=== PATIENT | female | born 1985 | race Caucasian/White ===

== ENCOUNTER 2018-12-10 18:15 | Observation (INO) | payer OTHER ==
[2018-12-10 20:15] LABS: BASO % 0.6 % (0.0-2.0); EOS # 0.2 K/uL (0.0-0.7); EOS % 3.6 % (0.0-4.0); HEMOGLOBIN 12.7 g/dL (12.0-16.0); LYMPH # 2.8 K/uL (1.0-4.3); LYMPH % 41.1 % (20.0-40.0); MEAN CORPUSCULAR HEMOGLOBIN 30.6 pg (27.0-31.0); MEAN CORPUSCULAR HGB CONC 33.7 g/dL (33.0-37.0); MONO # 0.5 K/uL (0.0-0.8); NEUT # 3.2 K/uL (1.8-7.0); NEUT % 47.7 % (50.0-75.0); NRBC % 0.1 % (0.0-0.0); RBC 4.14 Mil/uL (3.80-5.20); RED CELL DISTRIBUTION WIDTH 12.5 % (11.5-14.5); WHITE BLOOD COUNT 6.8 K/uL (4.8-10.8)
[2018-12-10 20:34] LABS: SQUAMOUS EPITHIAL 6 /hpf (0-5); URINE BILIRUBIN NEGATIVE (NEGATIVE); URINE BLOOD NEGATIVE (NEGATIVE); URINE CLARITY SLIGHTY-CLOUDY (Clear); URINE COLOR YELLOW (YELLOW); URINE GLUCOSE (UA) NEG (NEGATIVE); URINE LEUKOCYTE ESTERASE TRACE Leu/uL (Negative); URINE PROTEIN 100 mg/dL (NEGATIVE); URINE UROBILINOGEN 0.2-1.0 mg/dL (0.2-1.0)
[2018-12-10 20:37] LABS: ALT/SGPT 46 U/L (9-52); AST/SGOT 40 U/L (14-36); BLOOD UREA NITROGEN 12 mg/dl (7-17); CALCIUM 8.8 mg/dL (8.4-10.2); GFR NON-AFRICAN AMERICAN > 60
--- NOTE | 2018-12-10 21:14 | ED PDOC ---
Lower Extremity Pain/Injury Time Seen by Provider: 12/10/18 19:31 Chief Complaint (Nursing): Lower Extremity Problem/Injury Chief Complaint (Provider): lower extremity swelling and redness History Per: Patient History/Exam Limitations: no limitations Current Symptoms Are (Timing): Still Present Severity: Moderate Pain Scale Rating Of: 8 Additional History Per: Patient Additional Complaint(s): 33 year female with history of HIV sent by PMD for evaluation of bilateral lower extremity swelling and redness for one month. Patient states she was seen at [facility] twice a few weeks ago for same, Patient stated US were done and negative for "blood clots" but was not given antibiotics. Patient states swelling has worsened and painful on ambulation. She denies fever, bodyaches, nausea, vomiting, chills. - Risk Factors DVT Risk Factors: Pos: None Past Medical History Reviewed: Historical Data, Nursing Documentation, Vital Signs Vital Signs: Last Vital Signs Temp 98.6 F 12/10/18 18:41 Pulse 89 12/10/18 18:41 Resp 18 12/10/18 18:41 BP 115/77 12/10/18 18:41 Pulse Ox 99 12/10/18 18:41 Primary Care Provider: FAMILY PROVIDER,NO - Medical History PMH: HIV - Surgical History Surgical History: Cholecystectomy - Family History Family History: States: Unknown Family Hx - Living Arrangements Living Arrangements: With Family - Social History Alcohol: None Drugs: Denies - Immunization History Hx Tetanus Toxoid Vaccination: No Hx Influenza Vaccination: No Hx Pneumococcal Vaccination: No - Home Medications Home Medications: Ambulatory Orders Medication Instructions Recorded Emtricitabine/Tenofovir Diso 1 tab PO DAILY 12/11/15 [Truvada 200 MG-300 MG] Naproxen [Naprosyn] 500 mg PO BID #20 tab 12/11/15 Reyataz 1 tab PO DAILY 12/11/15 Ritonavir [Norvir] 100 mg PO DAILY 12/11/15 traMADol/Acetaminophen [Ultracet 1 tab PO Q8 PRN #20 tab 12/11/15 325 MG-37.5 MG] - Allergies Allergies/Adverse Reactions: Allergies Allergy/AdvReac Type Severity Reaction Status Date / Time zucchini Allergy SHORTNESS Uncoded 12/10/18 18:45 OF BREATH Wells Criteria for PE - Wells Criteria for Pulmonary Embolism Clinical Signs and Symptoms of DVT: Yes P.E is #1 Diagnosis, or Equally Likely: No Heart Rate >100: No Immobilization at least 3 days;Surgery previous 4 weeks: No Previous, objectively diagnosed PE or DVT: No Hemoptysis: No Malignancy w/treatment within 6 months, or palliative: No Total Score: 3 Review of Systems ROS Statement: Except As Marked, All Systems Reviewed And Found Negative Constitutional: Negative for: Fever, Chills, Sweats, Weakness, Malaise Eyes: Negative for: Pain, Vision Change, Eyelid Inflammation, Redness ENT: Negative for: Nose Pain, Mouth Pain, Throat Pain Cardiovascular: Negative for: Chest Pain, Light Headedness Respiratory: Negative for: Cough, Shortness of Breath, SOB with Exertion Gastrointestinal: Negative for: Nausea, Vomiting, Abdominal Pain, Diarrhea Musculoskeletal: Positive for: Leg Pain (bilat leg pain and swelling ), Foot Pain (bilat swelling) Neurological: Negative for: Weakness, Headache, Dizziness Physical Exam - Reviewed Nursing Documentation Reviewed: Yes Vital Signs Reviewed: Yes - Physical Exam Appears: Positive for: Well, Non-toxic, No Acute Distress Head Exam: Positive for: ATRAUMATIC, NORMAL INSPECTION, NORMOCEPHALIC Skin: Positive for: Warm (Bilat lower extremity swelling to the entire lower leg below the knee. with redness extending from ankles to mid calf, circumferential bilaterally.) Eye Exam: Positive for: Normal appearance, PERRL ENT: Positive for: Normal ENT Inspection Neck: Positive for: Normal, Painless ROM, Supple Cardiovascular/Chest: Positive for: Regular Rate, Rhythm, Chest Non Tender Respiratory: Positive for: CNT, Normal Breath Sounds Pulses-Dorsalis Pedis (L): 2+ Pulses-Dorsalis Pedis (R): 2+ Pulses-Radial (L): 2+ Pulses-Radial (R): 2+ Gastrointestinal/Abdominal: Positive for: Normal Exam, Soft Back: Positive for: Normal Inspection Extremity: Positive for: Normal ROM Neurological/Psych: Positive for: Awake, Alert, Normal Tone, Oriented - Laboratory Results Result Diagrams: 12/10/18 20:05 12/10/18 20:05 Lab Results: Total Bilirubin 1.0 mg/dl (0.2-1.3) 12/10/18 20:05 AST 40 U/L (14-36) H 12/10/18 20:05 ALT 46 U/L (9-52) 12/10/18 20:05 Alkaline Phosphatase 97 U/L (38-126) 12/10/18 20:05 Total Protein 8.0 G/DL (6.3-8.2) 12/10/18 20:05 Albumin 4.0 g/dL (3.5-5.0) 12/10/18 20:05 Globulin 4.0 gm/dL (2.2-3.9) H 12/10/18 20:05 Albumin/Globulin Ratio 1.0 (1.0-2.1) 12/10/18 20:05 Urine Color Yellow (YELLOW) 12/10/18 20:05 Urine Clarity Slighty-cloudy (Clear) 12/10/18 20:05 Urine pH 6.0 (5.0-8.0) 12/10/18 20:05 Ur Specific [place] 1.029 (1.003-1.030) 12/10/18 20:05 Urine Protein 100 mg/dL (NEGATIVE) 12/10/18 20:05 Urine Glucose (UA) Neg mg/dL (NEGATIVE) 12/10/18 20:05 Urine Ketones Trace mg/dL (NEGATIVE) 12/10/18 20:05 Urine Blood Negative (NEGATIVE) 12/10/18 20:05 Urine Nitrate Negative (NEGATIVE) 12/10/18 20:05 Urine Bilirubin Negative (NEGATIVE) 12/10/18 20:05 Urine Urobilinogen 0.2-1.0 mg/dL (0.2-1.0) 12/10/18 20:05 Ur Leukocyte Esterase Trace Armand/uL (Negative) 12/10/18 20:05 Urine RBC (Auto) 2 /hpf (0-3) 12/10/18 20:05 Urine Microscopic WBC 1 /hpf (0-5) 12/10/18 20:05 Ur Squamous Epith Cells 6 /hpf (0-5) H 12/10/18 20:05 - ECG O2 Sat by Pulse Oximetry: 99 Medical Decision Making Medical Decision Making: --CBC --CMP --ESR --BLOOD CX X2 --US LOWER EXT DOPPLER --VANCOMYCIN 1GM 19:[address] CORDON WHICH AGREES WITH PLAN. PER DR. KINGSTON LASIX NOT BE GIVEN AT THIS TIME, REQUESTED BY PMD. Disposition - Clinical Impression Clinical Impression: Cellulitis - Patient ED Disposition Is Patient to be Admitted: Transfer of Care - Disposition Disposition: Transfer of Care Disposition Time: 20:00 Condition: STABLE Patient Signed Over To: Kirsten Boston Handoff Comments: FOLLOW-UP ON LABS AND US DOPPLER RESULTS. - POA Present On Arrival: None
--- NOTE | 2018-12-10 21:41 | ED PDOC ---
- Laboratory Results Result Diagrams: 12/10/18 20:05 12/10/18 20:05 Lab Results: Total Bilirubin 1.0 mg/dl (0.2-1.3) 12/10/18 20:05 AST 40 U/L (14-36) H 12/10/18 20:05 ALT 46 U/L (9-52) 12/10/18 20:05 Alkaline Phosphatase 97 U/L (38-126) 12/10/18 20:05 Total Protein 8.0 G/DL (6.3-8.2) 12/10/18 20:05 Albumin 4.0 g/dL (3.5-5.0) 12/10/18 20:05 Globulin 4.0 gm/dL (2.2-3.9) H 12/10/18 20:05 Albumin/Globulin Ratio 1.0 (1.0-2.1) 12/10/18 20:05 Urine Color Yellow (YELLOW) 12/10/18 20:05 Urine Clarity Slighty-cloudy (Clear) 12/10/18 20:05 Urine pH 6.0 (5.0-8.0) 12/10/18 20:05 Ur Specific [place] 1.029 (1.003-1.030) 12/10/18 20:05 Urine Protein 100 mg/dL (NEGATIVE) 12/10/18 20:05 Urine Glucose (UA) Neg mg/dL (NEGATIVE) 12/10/18 20:05 Urine Ketones Trace mg/dL (NEGATIVE) 12/10/18 20:05 Urine Blood Negative (NEGATIVE) 12/10/18 20:05 Urine Nitrate Negative (NEGATIVE) 12/10/18 20:05 Urine Bilirubin Negative (NEGATIVE) 12/10/18 20:05 Urine Urobilinogen 0.2-1.0 mg/dL (0.2-1.0) 12/10/18 20:05 Ur Leukocyte Esterase Trace Armand/uL (Negative) 12/10/18 20:05 Urine RBC (Auto) 2 /hpf (0-3) 12/10/18 20:05 Urine Microscopic WBC 1 /hpf (0-5) 12/10/18 20:05 Ur Squamous Epith Cells 6 /hpf (0-5) H 12/10/18 20:05 - ECG O2 Sat by Pulse Oximetry: 99 - Progress ED Course And Treament: Case endorsed to proposal writer from Alayna NASCIMENTO pending labs, u/s EXAM: US for Deep Venous Thrombosis, bilateral Lower Extremity. CLINICAL HISTORY: Swelling TECHNIQUE: Real-time ultrasound scan of the veins of the bilateral lower extremity with color Doppler flow, spectral waveform analysis and compression. COMPARISON: None provided. FINDINGS: DEEP VEINS: The common femoral, superficial femoral, and popliteal veins are echolucent and compressible. There is normal color Doppler flow throughout. The visualized calf veins appear patent. SUPERFICIAL VEINS: The visualized greater saphenous vein is patent. SOFT TISSUES: No popliteal fossa cyst or other abnormalities. IMPRESSION: No deep venous thrombosis evident on bilateral lower extremity examination. Case discussed with Dr. Locke, hospitalist on-call, for admission Disposition - Clinical Impression Clinical Impression: Cellulitis - POA Present On Arrival: None - Disposition Disposition: Hospitalized as Observation Patient Disposition Time: 22:06 Condition: FAIR
--- NOTE | 2018-12-10 22:28 | CP.PCM.HP ---
History of Present Illness - History of Present Illness History of Present Illness: CC: leg pain HPI: 33 YO Female with PMHx of drug abuse (quit 4+yrs ago), obesity and HIV presents to [facility] ED for leg pain. Patient states that she has had on/off LLE pain, edema and erythema for the past month, it has worsened in that time. Initially, she would have swelling mostly in the LLE which would resolve in the morning after leg elevated. In the past 24 hrs, her swelling persisted along with worsening pain and erythema. This started initially in the L leg but she also noticed it on the R leg today. Patient was seen in PMD office and was sent to the ER for worsening symptoms. No associated trauma, bites or skin breakdown s. Denies fever, chills, palpitations, dyspnea, n/v, abdominal pain, worsening redness, edema, streaks. Denies long periods of inactivity and no blood/clotting disorders. PMD: Dr. Garcia PMHx: drug abuse (quit 4+yrs ago), tobacco use, obesity and HIV SurgHX: cholecystectomy FHx: HTN, CAD and DM in mother, father with liver malignancy NKDA, allergy to Zucchini Present on Admission - Present on Admission Any Indicators Present on Admission: No Review of Systems - Constitutional Constitutional: absent: Chills, Fever, Malaise - Cardiovascular Cardiovascular: absent: Chest Pain, Dyspnea, Palpitations - Respiratory Respiratory: absent: Cough, Dyspnea - Gastrointestinal Gastrointestinal: absent: Abdominal Pain - Musculoskeletal Musculoskeletal: Other (leg pain b/l). absent: Numbness Past Patient History - Past Social History Smoking Status: Light Smoker < 10 Cigarettes Daily Alcohol: None Drugs: Denies Home Situation {Lives}: With Family - HEMATOLOGICAL/ONCOLOGICAL Hx Human Immunodeficiency Virus (HIV): Yes - PSYCHIATRIC Hx Substance Use: No - SURGICAL HISTORY Hx Cholecystectomy: Yes - ANESTHESIA Hx Anesthesia: Yes Hx Anesthesia Reactions: No Meds Allergies/Adverse Reactions: Allergies Allergy/AdvReac Type Severity Reaction Status Date / Time zucchini Allergy SHORTNESS Uncoded 12/10/18 18:45 OF BREATH Physical Exam - Constitutional Appears: No Acute Distress, Other (obese) - Head Exam Head Exam: NORMAL INSPECTION - Eye Exam Eye Exam: EOMI, Normal appearance - ENT Exam ENT Exam: Mucous Membranes Moist - Respiratory Exam Respiratory Exam: Clear to Auscultation Bilateral, NORMAL BREATHING PATTERN. absent: Wheezes - Cardiovascular Exam Cardiovascular Exam: REGULAR RHYTHM, +S1, +S2 - GI/Abdominal Exam GI & Abdominal Exam: Normal Bowel Sounds, Soft, Tenderness - Extremities Exam Additional comments: erythema and non-pitting edema noted in the lower ext bilaterally, redness evenly distributed in both lets, starting from the distal leg superior to the ankle and extending to the mild-leg. Mild tenderness to palpation, normal warmth b/l. No streaking or LN appreciated Full ROM of the ankle and feet DT/PT intact Cap refill <2 sec No skin breaks appreciated - Neurological Exam Neurological exam: Alert, Oriented x3 - Psychiatric Exam Psychiatric exam: Normal Mood - Skin Skin Exam: Dry, Intact, Normal Color, Warm Results - Vital Signs Recent Vital Signs: Last Vital Signs Temp 98.6 F 12/10/18 18:41 Pulse 89 12/10/18 18:41 Resp 18 12/10/18 18:41 BP 115/77 12/10/18 18:41 Pulse Ox 99 12/10/18 22:08 - Labs Result Diagrams: 12/10/18 20:05 12/10/18 20:05 Labs: Laboratory Results - last 24 hr 12/10/18 12/10/18 12/10/18 20:05 20:05 20:05 WBC 6.8 RBC 4.14 Hgb 12.7 Hct 37.6 MCV 91.0 MCH 30.6 MCHC 33.7 RDW 12.5 Plt Count 338 MPV 7.0 L Neut % (Auto) 47.7 L Lymph % (Auto) 41.1 H [place] % (Auto) 7.0 Eos % (Auto) 3.6 Baso % (Auto) 0.6 Neut # (Auto) 3.2 Lymph # (Auto) 2.8 [place] # (Auto) 0.5 Eos # (Auto) 0.2 Baso # (Auto) 0.0 ESR 35 H Sodium 136 Potassium 4.0 Chloride 100 Carbon Dioxide 26 Anion Gap 14 BUN 12 Creatinine 0.6 L Est GFR ( Amer) > 60 Est GFR (Non-Af Amer) > 60 Random Glucose 111 H Calcium 8.8 Total Bilirubin 1.0 AST 40 H ALT 46 Alkaline Phosphatase 97 Total Protein 8.0 Albumin 4.0 Globulin 4.0 H Albumin/Globulin Ratio 1.0 Urine Color Yellow Urine Clarity Slighty-cloudy Urine pH 6.0 Ur Specific [place] 1.029 Urine Protein 100 Urine Glucose (UA) Neg Urine Ketones Trace Urine Blood Negative Urine Nitrate Negative Urine Bilirubin Negative Urine Urobilinogen 0.2-1.0 Ur Leukocyte Esterase Trace Urine RBC (Auto) 2 Urine Microscopic WBC 1 Ur Squamous Epith Cells 6 H Assessment & Plan - Assessment and Plan (Free Text) Assessment: Assessment/Plan: 33 YO Female with PMHx of drug abuse (quit 4+yrs ago), obesity and HIV is admitted for lower ext cellulites. Lower ext pain -unlikely to be cellulites given symmetry of the findings -other etiology to consider include stasis dermatitis, erythema nodosum etc -consider outpatient dermatology consult -s/p IV vamcomycin -reevaluate in AM for further need for abx -follow up inflammatory markers in the AM HIV -chronic -c/w home meds Tobacco abuse -currently cutting down -education, encourage -Nicotine patch TD DVT prolx -Lovenox SC
[2018-12-11 01:01] VITALS: O2SAT 97
[2018-12-11 07:08] LABS: BASO % 0.5 % (0.0-2.0); EOS # 0.3 K/uL (0.0-0.7); EOS % 4.4 % (0.0-4.0); HEMOGLOBIN 12.5 g/dL (12.0-16.0); LYMPH # 2.2 K/uL (1.0-4.3); MEAN CELL VOLUME 91.8 fl (81.0-99.0); MEAN CORPUSCULAR HEMOGLOBIN 30.3 pg (27.0-31.0); MEAN PLATELET VOLUME 6.9 fl (7.2-11.7); MONO # 0.5 K/uL (0.0-0.8); MONO % 9.1 % (0.0-10.0); NEUT # 2.8 K/uL (1.8-7.0); NRBC % 0.1 % (0.0-0.0); RBC 4.13 Mil/uL (3.80-5.20); WHITE BLOOD COUNT 5.8 K/uL (4.8-10.8)
[2018-12-11 07:53] VITALS: BP 128/77; PULSE 66; RESP 20; TEMP 97.5
--- NOTE | 2018-12-11 08:42 | US ---
Date of service: 12/10/2018 PROCEDURE: Bilateral lower extremity venous duplex Doppler. HISTORY: LEG SWELLING COMPARISON: None available. TECHNIQUE: Bilateral common femoral, superficial femoral, popliteal and posterior tibial veins were evaluated. Flow was assessed with color Doppler, compressibility, assessment of phasic flow and augmentation response. FINDINGS: COMMON FEMORAL VEIN: Right CFV: Unremarkable. Left CFV: Unremarkable. SUPERFICIAL FEMORAL VEIN: Right SFV: Unremarkable. Left SFV: Unremarkable. POPLITEAL VEIN: Right Popliteal: Unremarkable. Left Popliteal: Unremarkable. POSTERIOR TIBIAL VEIN: Right PTV: Unremarkable. Left PTV: Unremarkable. OTHER FINDINGS: None. IMPRESSION: No evidence of deep venous thrombosis in the right or left lower extremity. The preliminary findings for this examination were reported by [facility] at 9:53 p.m. on 12/10/2018. There is concurrence of this report with the preliminary findings.
[2018-12-11] MEDS ORDERED: Multivitamin With Minerals Tab PO SCH (09:00)
[2018-12-11] MEDS ORDERED: Emtricitabine-Tenofovir 200 mg-300 mg Tab PO SCH (09:00)
[2018-12-11] MEDS ORDERED: Enoxaparin 60 mg Syringe SC SCH (09:00)
[2018-12-11] MEDS ORDERED: METHADONE PO SCH (09:00)
[2018-12-11] MEDS ORDERED: REYATAZ 300 MG PO SCH (09:00)
--- NOTE | 2018-12-11 10:54 | CP.PCM.DIS ---
<Leonardo Sotelo - Last Filed: 12/11/18 10:55> Provider - Provider Date of Admission: 12/10/18 22:07 Attending physician: Eri Locke MD Consults: 12/11/18 09:00 Social Work Referral Routine Comment: hx of substance abuse/ cocaine Physician Instructions: Reason For Exam: hx of substance abuse Time Spent in preparation of Discharge (in minutes): 35 Diagnosis - Discharge Diagnosis (1) Stasis dermatitis of both legs Status: Acute Hospital Course - Lab Results Lab Results: Most Recent Lab Values WBC 5.8 K/uL (4.8-10.8) 12/11/18 06:25 RBC 4.13 Mil/uL (3.80-5.20) 12/11/18 06:25 Hgb 12.5 g/dL (12.0-16.0) 12/11/18 06:25 Hct 37.9 % (34.0-47.0) 12/11/18 06:25 MCV 91.8 fl (81.0-99.0) 12/11/18 06:25 MCH 30.3 pg (27.0-31.0) 12/11/18 06:25 MCHC 33.0 g/dL (33.0-37.0) 12/11/18 06:25 RDW 13.0 % (11.5-14.5) 12/11/18 06:25 Plt Count 304 K/uL (130-400) 12/11/18 06:25 MPV 6.9 fl (7.2-11.7) L 12/11/18 06:25 Neut % (Auto) 48.0 % (50.0-75.0) L 12/11/18 06:25 Lymph % (Auto) 38.0 % (20.0-40.0) 12/11/18 06:25 [place] % (Auto) 9.1 % (0.0-10.0) 12/11/18 06:25 Eos % (Auto) 4.4 % (0.0-4.0) H 12/11/18 06:25 Baso % (Auto) 0.5 % (0.0-2.0) 12/11/18 06:25 Neut # (Auto) 2.8 K/uL (1.8-7.0) 12/11/18 06:25 Lymph # (Auto) 2.2 K/uL (1.0-4.3) 12/11/18 06:25 [place] # (Auto) 0.5 K/uL (0.0-0.8) 12/11/18 06:25 Eos # (Auto) 0.3 K/uL (0.0-0.7) 12/11/18 06:25 Baso # (Auto) 0.0 K/uL (0.0-0.2) 12/11/18 06:25 ESR 35 mm/hr (0-20) H 12/10/18 20:05 Sodium 136 mmol/l (132-148) 12/10/18 20:05 Potassium 4.0 MMOL/L (3.6-5.0) 12/10/18 20:05 Chloride 100 mmol/L (98-107) 12/10/18 20:05 Carbon Dioxide 26 mmol/L (22-30) 12/10/18 20:05 Anion Gap 14 (10-20) 12/10/18 20:05 BUN 12 mg/dl (7-17) 12/10/18 20:05 Creatinine 0.6 mg/dl (0.7-1.2) L 12/10/18 20:05 Est GFR ( Amer) > 60 12/10/18 20:05 Est GFR (Non-Af Amer) > 60 12/10/18 20:05 Random Glucose 111 mg/dL (65-105) H 12/10/18 20:05 Calcium 8.8 mg/dL (8.4-10.2) 12/10/18 20:05 Total Bilirubin 1.0 mg/dl (0.2-1.3) 12/10/18 20:05 AST 40 U/L (14-36) H 12/10/18 20:05 ALT 46 U/L (9-52) 12/10/18 20:05 Alkaline Phosphatase 97 U/L (38-126) 12/10/18 20:05 Lactate Dehydrogenase 403 U/L (313-618) 12/11/18 06:25 Total Protein 8.0 G/DL (6.3-8.2) 12/10/18 20:05 Albumin 4.0 g/dL (3.5-5.0) 12/10/18 20:05 Globulin 4.0 gm/dL (2.2-3.9) H 12/10/18 20:05 Albumin/Globulin Ratio 1.0 (1.0-2.1) 12/10/18 20:05 Urine Color Yellow (YELLOW) 12/10/18 20:05 Urine Clarity Slighty-cloudy (Clear) 12/10/18 20:05 Urine pH 6.0 (5.0-8.0) 12/10/18 20:05 Ur Specific [place] 1.029 (1.003-1.030) 12/10/18 20:05 Urine Protein 100 mg/dL (NEGATIVE) 12/10/18 20:05 Urine Glucose (UA) Neg mg/dL (NEGATIVE) 12/10/18 20:05 Urine Ketones Trace mg/dL (NEGATIVE) 12/10/18 20:05 Urine Blood Negative (NEGATIVE) 12/10/18 20:05 Urine Nitrate Negative (NEGATIVE) 12/10/18 20:05 Urine Bilirubin Negative (NEGATIVE) 12/10/18 20:05 Urine Urobilinogen 0.2-1.0 mg/dL (0.2-1.0) 12/10/18 20:05 Ur Leukocyte Esterase Trace Armand/uL (Negative) 12/10/18 20:05 Urine RBC (Auto) 2 /hpf (0-3) 12/10/18 20:05 Urine Microscopic WBC 1 /hpf (0-5) 12/10/18 20:05 Ur Squamous Epith Cells 6 /hpf (0-5) H 12/10/18 20:05 - Hospital Course Hospital Course: 33 YO Female with PMHx of drug abuse (quit 4+yrs ago), obesity and HIV was admitted for evaluation of b/l lower ext edema. Pt had b/l duplex done, which showed no evidence of DVT. CBC showed no leukocytosis and D-dimer was normal. Edema/erythema improved overnight with rest and leg elevation. After an uneventful hospital stay, the pt was discharged in stable condition. Lower ext pain -unlikely to be cellulites given symmetry of the findings -other etiology to consider include stasis dermatitis, erythema nodosum etc -consider outpatient dermatology consult -s/p IV vamcomycin -reevaluate in AM for further need for abx -follow up inflammatory markers in the AM HIV -chronic -c/w home meds Tobacco abuse -currently cutting down -education, encourage -Nicotine patch TD DVT prolx -Lovenox SC Discharge Exam - Head Exam Head Exam: NORMAL INSPECTION - Eye Exam Eye Exam: EOMI Pupil Exam: PERRL - ENT Exam ENT Exam: Mucous Membranes Moist - Neck Exam Neck exam: Full Rom - Respiratory Exam Respiratory Exam: Clear to PA & Lateral, NORMAL BREATHING PATTERN, UNREMARKABLE - Cardiovascular Exam Cardiovascular Exam: REGULAR RHYTHM, RRR, +S1, +S2. absent: JVD, Systolic Murmur - GI/Abdominal Exam GI & Abdominal Exam: Normal Bowel Sounds, Soft, Unremarkable. absent: Pulsatile Mass, Rebound, Rigid - Extremities Exam Extremities exam: normal capillary refill, pedal edema (b/l pedal edema with hyperpigemntation b/l overlying lower 3rd LE), pedal pulses present - Neurological Exam Neurological exam: Alert, CN II-XII Intact, Normal Gait, Oriented x3 - Psychiatric Exam Psychiatric exam: Normal Affect, Normal Mood - Skin Skin Exam: Dry, Intact, Warm Discharge Plan - Discharge Medications Prescriptions: Sulfamethoxazole/Trimethoprim [Bactrim DS 800 mg-160 mg] 1 tab PO Q12H #10 tab - Follow Up Plan Condition: STABLE Disposition: HOME/ ROUTINE Instructions: Varicose Veins and Other Vein Disease in the Legs, Dependent Edema (DC), Cellulitis (DC) Additional Instructions: follow up with primary MD 1 week take medications as prescribed follow up with dermatology any worsening of symptoms please return to ED Referrals: Anthony Duran MD [Staff Provider] - Ines Garcia MD [Family Provider] - <Marcella Quiles - Last Filed: 12/11/18 17:08> Provider - Provider Date of Admission: 12/10/18 22:07 Attending physician: Eri Locke MD Consults: 12/11/18 09:00 Social Work Referral Routine Comment: hx of substance abuse/ cocaine Physician Instructions: Reason For Exam: hx of substance abuse Hospital Course - Lab Results Lab Results: Most Recent Lab Values WBC 5.8 K/uL (4.8-10.8) 12/11/18 06:25 RBC 4.13 Mil/uL (3.80-5.20) 12/11/18 06:25 Hgb 12.5 g/dL (12.0-16.0) 12/11/18 06:25 Hct 37.9 % (34.0-47.0) 12/11/18 06:25 MCV 91.8 fl (81.0-99.0) 12/11/18 06:25 MCH 30.3 pg (27.0-31.0) 12/11/18 06:25 MCHC 33.0 g/dL (33.0-37.0) 12/11/18 06:25 RDW 13.0 % (11.5-14.5) 12/11/18 06:25 Plt Count 304 K/uL (130-400) 12/11/18 06:25 MPV 6.9 fl (7.2-11.7) L 12/11/18 06:25 Neut % (Auto) 48.0 % (50.0-75.0) L 12/11/18 06:25 Lymph % (Auto) 38.0 % (20.0-40.0) 12/11/18 06:25 [place] % (Auto) 9.1 % (0.0-10.0) 12/11/18 06:25 Eos % (Auto) 4.4 % (0.0-4.0) H 12/11/18 06:25 Baso % (Auto) 0.5 % (0.0-2.0) 12/11/18 06:25 Neut # (Auto) 2.8 K/uL (1.8-7.0) 12/11/18 06:25 Lymph # (Auto) 2.2 K/uL (1.0-4.3) 12/11/18 06:25 [place] # (Auto) 0.5 K/uL (0.0-0.8) 12/11/18 06:25 Eos # (Auto) 0.3 K/uL (0.0-0.7) 12/11/18 06:25 Baso # (Auto) 0.0 K/uL (0.0-0.2) 12/11/18 06:25 ESR 35 mm/hr (0-20) H 12/10/18 20:05 Sodium 136 mmol/l (132-148) 12/10/18 20:05 Potassium 4.0 MMOL/L (3.6-5.0) 12/10/18 20:05 Chloride 100 mmol/L (98-107) 12/10/18 20:05 Carbon Dioxide 26 mmol/L (22-30) 12/10/18 20:05 Anion Gap 14 (10-20) 12/10/18 20:05 BUN 12 mg/dl (7-17) 12/10/18 20:05 Creatinine 0.6 mg/dl (0.7-1.2) L 12/10/18 20:05 Est GFR ( Amer) > 60 12/10/18 20:05 Est GFR (Non-Af Amer) > 60 12/10/18 20:05 Random Glucose 111 mg/dL (65-105) H 12/10/18 20:05 Calcium 8.8 mg/dL (8.4-10.2) 12/10/18 20:05 Total Bilirubin 1.0 mg/dl (0.2-1.3) 12/10/18 20:05 AST 40 U/L (14-36) H 12/10/18 20:05 ALT 46 U/L (9-52) 12/10/18 20:05 Alkaline Phosphatase 97 U/L (38-126) 12/10/18 20:05 Lactate Dehydrogenase 403 U/L (313-618) 12/11/18 06:25 Total Protein 8.0 G/DL (6.3-8.2) 12/10/18 20:05 Albumin 4.0 g/dL (3.5-5.0) 12/10/18 20:05 Globulin 4.0 gm/dL (2.2-3.9) H 12/10/18 20:05 Albumin/Globulin Ratio 1.0 (1.0-2.1) 12/10/18 20:05 Urine Color Yellow (YELLOW) 12/10/18 20:05 Urine Clarity Slighty-cloudy (Clear) 12/10/18 20:05 Urine pH 6.0 (5.0-8.0) 12/10/18 20:05 Ur Specific [place] 1.029 (1.003-1.030) 12/10/18 20:05 Urine Protein 100 mg/dL (NEGATIVE) 12/10/18 20:05 Urine Glucose (UA) Neg mg/dL (NEGATIVE) 12/10/18 20:05 Urine Ketones Trace mg/dL (NEGATIVE) 12/10/18 20:05 Urine Blood Negative (NEGATIVE) 12/10/18 20:05 Urine Nitrate Negative (NEGATIVE) 12/10/18 20:05 Urine Bilirubin Negative (NEGATIVE) 12/10/18 20:05 Urine Urobilinogen 0.2-1.0 mg/dL (0.2-1.0) 12/10/18 20:05 Ur Leukocyte Esterase Trace Armand/uL (Negative) 12/10/18 20:05 Urine RBC (Auto) 2 /hpf (0-3) 12/10/18 20:05 Urine Microscopic WBC 1 /hpf (0-5) 12/10/18 20:05 Ur Squamous Epith Cells 6 /hpf (0-5) H 12/10/18 20:05 Attending/Attestation - Attestation I have personally seen and examined this patient.: Yes I have fully participated in the care of the patient.: Yes I have reviewed all pertinent clinical information, including history, physical exam and plan: Yes Notes (Text): Lower extremity Erythema and Edema likely Stasis Dermatitis poss Mild Cellulitis Asymptomatic HIV 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
== END 2018-12-11 14:11 | disposition home or self-care (01) ==
LOC: H.ER 18:15 → H.ERHOLD 22:07 → H.MEDSURG1 12-11 00:19
PROVIDERS: ADMIT Internal Medicine; ATTEND Internal Medicine
DX: I87.2 Venous insufficiency (chronic) (peripheral) (principal); E66.9 Obesity, unspecified; Z68.42 Body mass index [BMI] 45.0-49.9, adult; Z72.0 Tobacco use; Z21 Asymptomatic human immunodeficiency virus [HIV] infection status; Z91.018 Allergy to other foods
CPT/HCPCS: 36415; 80053; 81003; 81025; 83615; 85025; 85651; 87040; 93970; 96365; 96366; 96372; 96375; 99284; G0378; J1650; J1885; J3370